=== PATIENT | male | born 1940 | race American Indian/Alaskan Native ===

== ENCOUNTER 2017-03-15 10:11 | Day surgery (SDC) | payer MEDICARE ==
--- NOTE | 2017-03-09 11:51 | Admit Criteria Form ---
Admission Criteria Documentation: AMBULATORY SURGERY EXCEPTION CRITERIA Ambulatory Surgery Exception Criteria ( Place 'X' for any and all applicable criteria): Surgery or procedure performed on ambulatory basis may require inpatient stay for[A] ANY ONE of the following(1)(2)(3)(4)(5)(6)(7)(8)(9): [X] I. A preoperative situation, condition, or finding that warrants inpatient stay as indicated by ANY ONE of the following: [X] a) Inpatient care needed because of severity of a disease or condition rather than the surgery (eg, severe cardiac or respiratory disease, severe infection) (15) (16 ) (17) (18) [] b) Emergent procedure (eg, angioplasty for acute ischemia)(19) [] c) Complex surgical approach or situation as indicated by ANY ONE of the following(3): [] i) Open approach needed instead of usual endoscopic, transcatheter, or other less invasive procedure [] ii) Difficult approach because of previous operation [] iii) Airway monitoring required after open neck procedures(20)(21) [] iv) Large mass requiring unusually extensive dissection [] v) Additional complicating feature requiring inpatient care (eg, drain management)(22(23): [] d) Major surgery in a pt with high anesthetic risk as indicated by ANY ONE of the following (2)(3)(5)(7)(8): [] i) ASA risk class III or higher (severe systemic disease impairing function) [D] [] ii) Advanced age (eg, older than 85 years)(14)(24) [] iii) Symptomatic heart failure(25) [] iv) Symptomatic asthma or COPD(8)(21) [] v) Morbid obesity with hemodynamic or respiratory problems(20)( 21)(26)(27) [] vi) Obstructive sleep apnea(20)(21) [] vii) Former premature infants who are younger than 60 weeks [] viii) High risk for severe postoperative abnormalities (eg, severe postoperative hypocalcemia after parathyroidectomy for severe hyperparathyroidism)(27)( 28) [] ix) Unstable angina(25) [] e) Drug-related risk requiring inpatient stay as indicated by ANY ONE of the following(5)(10)(14)(32)(33) [] i) Procedure requires discontinuing drugs or other therapy (eg , antiarrhythmic medication, antiseizure medication), which necessitates inpatient observation or treatment.(18)(31) [] ii) Major surgery and high risk drug use as indicated by ANY ONE of the following: [] 1) Active abuse of cocaine or similar drug [] 2) Monoamine oxidase inhibitor use [] 3) Other drug identified as posing risk [] f) Inadequate outpatient care situation as indicated by ANY ONE of the following(5)(10)(14)(32)(33) [] i) Patient lives remote from medical facility and procedure has urgent complication potential, and temporary nearby residence cannot be arranged [] ii) Patient will have postprocedure incapacitation and inadequate assistance at home, or alternative level of care cannot be arranged. [] iii) Patient will have long general anesthesia or procedure side effect resolution time, and competent person to stay with patient on first postoperative night at home or alternative level of care cannot be arranged. []iv) Other inadequate outpatient situation that cannot be handled by other means [] II. A perioperative event, condition, or finding that warrants inpatient stay as indicated by ANY ONE of the following (1)(2)(3): [] a) Inadequate physiologic recovery: cardiovascular, respiratory, or hemodynamic status not normal or near preoperative baseline(18) [] b) Hemodynamic instability [] c) Patient not alert with near normal or baseline mental status [] d) Temperature not normal or as expected and not appropriate for outpatient treatment of condition [] e) Ambulatory or appropriate activity level status not yet achieved post procedure [E](34)(35)(36) [] f) Operative site not appropriate (eg, unexpected or excessive drainage or bleeding) [] g) Postoperative effects not resolved or adequately managed (eg, significant pain or vomiting not appropriate for outpatient or next level of care)(10)(12) [] h) Complicating features requiring inpatient care as indicated by ANY ONE of the following(37): [] i) Severe complications of procedure (eg, bowel injury, airway compromise, vascular injury,severe hemorrhage) [] ii) Extensive (eg, dissection far beyond usual scope of procedure ) or prolonged (eg, 120 minutes beyond usual) surgery needed requiring inpatient postoperative care [] iii) Conversion to an open or complex procedure that requires inpatient care (eg, open vs laparoscopic cholecystectomy, abdominal vs vaginal hysterectomy)(38) [] iv) Comorbid condition or test result identified during or post procedure that requires inpatient care (7) [] v) Malignant hyperthermia(30) [] vi) Other complicating feature requiring inpatient care(22)(23) Inpatient stay may be needed until ALL of the following are present (1)(2)(3)(4) (5)(6)(10)(14)(33)(40): []a) Physiologic recovery: cardiovascular, respiratory, and hemodynamic status normal or near preoperative baseline []b) Hemodynamic stability []c) Patient alert, with near normal or baseline mental status []d) Temperature appropriate: patient afebrile or temperature appropriate for outpt treatment of condition []e) Activity level appropriate: ambulatory or appropriate activity level post procedure []f) Operative site appropriate as indicated by ALL of the following: []i) Site dry or with expected drainage []ii) Any blood noted is as expected for procedure. []g) Postoperative effects resolved or managed as indicated by ALL of the following: []i) Pain management appropriate for outpatient (or next level of) care(10) []ii) Minimal nausea and vomiting: if present, successfully treated with oral medication(12) []iii) Headache, dizziness, or drowsiness (if present) are mild. []h) Voiding status acceptable as indicated by ANY ONE of the following: []i) Voiding spontaneously []ii) No voiding but instructions given for follow-up in 6 to 8 hours []iii) Urinary catheter in place, and instructions given for follow-up []i) Complicating features requiring inpatient care manageable at a lower level of care(37) []j) Comorbid conditions manageable at a lower level of care(37) The original [employer] content created by [employer] has been revised. The portions of the content which have been revised are identified through the use of italic text or in bold, and [employer] has neither reviewed nor approved the modified material. All other unmodified content is copyright [employer]. Please see references footnoted in the original [employer] edition 2016
[2017-03-15] MEDS ORDERED: DILAUDID IV PRN (11:18)
--- NOTE | 2017-03-15 11:19 | Anesthesia Day of Surgery ---
Anesthesia Day of Surgery - Day of Surgery Patient Examined: Yes Patient H&P Reviewed: Yes Patient is NPO: Yes
--- NOTE | 2017-03-15 11:20 | Anesthesia Consultation ---
Anesthesia Consult and Med Hx Date of service: 03/15/17 - Airway Anesthetic Teeth Evaluation: Poor ROM Head & Neck: Adequate Mental/Hyoid Distance: Inadequate Mallampati Class: Class III Intubation Access Assessment: Possibly Difficult - Pulmonary Exam CTA: Yes - Cardiac Exam Cardiac Exam: RRR - Pulmonary Hx Smoking: No Hx Sleep Apnea: Yes - Cardiovascular System Hx Hypertension: Yes (X 40 YRS) Hx Heart Murmur: Yes (CAUSES NO PROBLEMS) - Gastrointestinal Hx Gastroesophageal Reflux Disease: Yes (after meals) - Endocrine Hx Hypothyroidism: Yes (ON MEDS) - Other Systems Hx Obesity: Yes (morbid) - Additional Comments Anesthesia Medical History Comments: s/p prostate ca and xrt
[2017-03-15] MEDS ORDERED: ZOFRAN IV PRN (11:30)
[2017-03-15] MEDS ORDERED: NACL 0.9% 1000 ML 1,000 ML IV SCH (12:00)
[2017-03-15] MEDS ORDERED: PEPCID IV NR (12:00)
[2017-03-15] MEDS ORDERED: XYLOCAINE MPF 2% ONE ×2 (13:10→14:07)
[2017-03-15] MEDS ORDERED: DIPRIVAN 10 MG/ML IV ONE (13:11)
[2017-03-15] MEDS ORDERED: ANCEF/STERILE WATER 2 GM/20 ML IV NR (13:11)
[2017-03-15] MEDS ORDERED: SUBLIMAZE ONE (13:11)
[2017-03-15] MEDS ORDERED: DECADRON ONE (14:00)
[2017-03-15] MEDS ORDERED: ZOFRAN ONE (14:00)
[2017-03-15] MEDS ORDERED: WATER FOR IRRIG STERILE IR ONE (14:03)
[2017-03-15] MEDS ORDERED: OMNIPAQUE (300 MG) IR ONE (14:03)
--- NOTE | 2017-03-15 14:06 | Short Stay Summary ---
Short Stay Documentation Date of service: 03/15/17 - History H&P: obtained from office - Allergies and Medications Current Medications: Allergies No Known Allergies Allergy (Verified 03/07/17 12:37) Home Medications Medication Instructions Recorded Confirmed Last Taken Type Aspirin [Adult Low Dose Aspirin EC] 81 mg PO DAILY 03/07/17 03/15/17 03/08/17 History Fenofibrate [Tricor] 145 mg PO QDAY 03/07/17 03/15/17 03/14/17 History Furosemide [Lasix] 20 mg PO QDAY 03/07/17 03/15/17 03/14/17 History Levothyroxine [Synthroid] 25 mcg PO QAM 03/07/17 03/15/17 03/15/17 History Potassium Citrate [Potassium 10 meq PO DAILY 03/07/17 03/15/17 03/14/17 History Citrate ER] Tamsulosin [Flomax] 0.4 mg PO QDAY 03/07/17 03/15/17 03/14/17 History amLODIPine [Norvasc] 10 mg PO DAILY 03/07/17 03/15/17 03/15/17 History Active Medications Cefazolin Sodium (Ancef/Sterile Water 2 Gm/20 Ml) 2 gm IV PREOP NR Stop: 03/15/17 23:59 Famotidine (Pepcid) 20 mg IV PREOP NR Stop: 03/15/17 15:00 Last Admin: 03/15/17 11:57 Dose: 20 mg Hydromorphone HCl (Dilaudid) 0.25 mg IV Q10MIN PRN PRN Reason: Pain, Moderate (4-6) Stop: 03/15/17 15:00 Sodium Chloride (Nacl 0.9% 1000 Ml) 1,000 mls @ 75 mls/hr IV DIRECT LANE Last Admin: 03/15/17 11:57 Dose: 75 mls/hr - Brief post op/procedure progress note Date of procedure: 03/15/17 Post-op diagnosis: same Procedure: cysto rpg, dilation; bx /fulg;res bladder tumor; intravesical dhaval Anesthesia: GETA Findings: stx papillary tubor in tic adjacent to uol efflux after Surgeon: MIKY GILMAN Estimated blood loss: minimal Condition: stable - Hospital course Hospital course: orpacuhome - Disposition Condition at discharge: Good Disposition: DISCHARGED TO HOME OR SELFCARE Short Stay Discharge Plan Activity: advance as tolerated Diet: advance as tolerated Follow up with: MIKY GILMAN MD [Staff Physician] - 7 Days
[2017-03-15] MEDS ORDERED: QUELICIN ONE (14:07)
[2017-03-15] MEDS ORDERED: ZEMURON IV ONE (14:07)
[2017-03-15] MEDS ORDERED: ePHEDrine SULFATE ONE (14:14)
[2017-03-15] MEDS ORDERED: NEOSTIGMINE ONE (14:44)
[2017-03-15] MEDS ORDERED: ROBINUL ONE (14:44)
[2017-03-15] MEDS ORDERED: [UNRECOGNIZED DRUG - OTHER] UD NR (15:00)
[2017-03-15] MEDS ORDERED: WATER FOR INJ UD NR ×3 (15:00→16:00)
[2017-03-15] MEDS ORDERED: [UNRECOGNIZED DRUG - OTHER] UD NR (15:00)
--- NOTE | 2017-03-15 15:10 | Fluoroscopy Report ---
RETROGRADE PYELOGRAM: History: Urethral stricture, prostate cancer. There is adequate filling of the ureters and intrarenal collecting systems with no filling defects or anatomic abnormalities identified.
[2017-03-15] MEDS ORDERED: [UNRECOGNIZED DRUG - OTHER] UD NR (16:00)
[2017-03-15] MEDS: DILAUDID IV PRN ×2 (19:15→19:30)
[2017-03-15] MEDS ORDERED: DILAUDID ONE (19:17)
[2017-03-15 22:34] VITALS: BP 137/52
--- NOTE | 2017-03-19 21:43 | Operative Report ---
PREOPERATIVE DIAGNOSES: Urethral stricture disease, history of prostate cancer. POSTOPERATIVE DIAGNOSES: Urethral stricture disease, history of prostate cancer plus bladder tumor, bladder diverticulum. SURGEON: Boby Muñoz MD ANESTHESIA: General. SPECIMENS: Bladder tumor. ESTIMATED BLOOD LOSS: Minimal. FINDINGS: The bladder tumor just lateral to the right ureteral orifice with the diverticulum at the edge of the diverticulum. The diverticulum that was just lateral to the ureteral orifice with possible intramural ureter passing closed by moderate stricture. CLINICAL INDICATIONS: The patient was counseled on RCBA, antibiotics, SCDs with his history has a urethral stricture and was here for evaluation at this point, antibiotics, SCDs. DESCRIPTION OF PROCEDURE: The patient was transferred to the OR suite in supine position, anesthesia, dorsal lithotomy, prepped and draped in standard fashion. A 22-Lao scope passed, urethral stricture identified. Wire passed beyond this under fluoroscopic visualization in the bladder. DVIU knife passed, incised at the 12 o'clock position and this was fairly extensive, opened up some scare tissue additionally, used the S-curve dilators to further open this up through the urethra in the bladder neck. Once this was open, a 22-Lao scope passed. Pancystoscopy 30 and 70 lens demonstrated no tumors initially, the right and left ureteral orifices were visualized. The diverticulum that was just lateral to the ureteral orifices, but almost decomposing the ureteral orifices and intramural ureter. At this point, we did notice a papillary lesion just lateral to the right ureteral orifice within the diverticulum at edge. At this point, the left ureteral orifice was cannulated with 8-Lao cone tip catheter, contrast injected. Normal left distal ureter, proximal ureter, renal pelvis calyces. No filling defects or hydronephrosis. Repeated on the right side with similar normal findings. At this point, due to the location, we were unable to do any passing type of resectoscope. It was a small papillary lesion, but highly suspicious that looked like a cancer. At this point as best as possible the tumor went at about 90 or 120 degrees at the curve of the diverticulum and this curve just over the ureteral orifice. We rotated and took the biopsy forceps and took some biopsy specimen as best as possible cauterized this area, correlated with where the contrast injected to avoid damaging the ureter and we seemed to be away from this. Biopsies were taken and the surrounding area was cauterized. The bladder was irrigated several times. Biopsy specimen stent. At this point, Dsouza catheter was placed, 20-Lao, we elected to go ahead and instill the mitomycin with plan was to possible instillation of mitomycin due to I would take a while after the procedure. The patient was awakened and transferred to PACU in good and stable condition. Exam under anesthesia, testicles rectal, no masses. JOB# [id number] ATS/NTS
== END 2017-03-15 21:30 | disposition home or self-care (01) ==
LOC: OR 10:11
PROVIDERS: ATTEND Urology
DX: N35.9 Urethral stricture, unspecified (principal); C67.6 Malignant neoplasm of ureteric orifice; N32.3 Diverticulum of bladder; N32.89 Other specified disorders of bladder; I10 Essential (primary) hypertension; F41.9 Anxiety disorder, unspecified; G47.33 Obstructive sleep apnea (adult) (pediatric); K21.9 Gastro-esophageal reflux disease without esophagitis; E03.9 Hypothyroidism, unspecified; E66.01 Morbid (severe) obesity due to excess calories; Z68.41 Body mass index [BMI] 40.0-44.9, adult; Z85.46 Personal history of malignant neoplasm of prostate; Z79.899 Other long term (current) drug therapy
CPT/HCPCS: 36415; 52204; 52276; 74420; 84132; 88305; A4217; C1726; C1758; J0330; J0690; J1100; J1170; J2405; J2704; J2710; J3010; J7030; Q9967; J9280

== ENCOUNTER 2017-06-24 15:17 | Emergency (ER) | payer MEDICARE ==
[2017-06-24 15:45] VITALS: BP 180/70
[2017-06-24] MEDS ORDERED: NACL 0.9% 500 ML IR ONE ×2 (17:50→19:28)
--- NOTE | 2017-06-24 17:59 | Emergency Department Report ---
<NORM BORJASLESHELDON Garces - Last Filed: 06/24/17 18:55> ED General Adult HPI - General Chief complaint: Tube Replacement Stated complaint: URINARY CATH STOPPED UP Time Seen by Provider: 06/24/17 17:45 Source: patient, family Mode of arrival: Ambulatory Limitations: No Limitations - History of Present Illness Initial comments: pt is sp bladder ca w rad he has a mckeon which has been in about a week prior to that he had one for 17 days also has urinary stricture no asa in 1 w the cath continue to occlude with clots flushing is only temp flushes at home then it fills with clot again. concerned w all of the blood loss pt has had vss MD Complaint: hematuria concern for h/h given pts sob. he is morbidly obese Improves with: none Worsens with: none Associated Symptoms: denies other symptoms. denies: confusion, chest pain, cough, diaphoresis, fever/chills, headaches, loss of appetite, malaise, nausea/ vomiting, rash, seizure, shortness of breath, syncope, weakness Treatments Prior to Arrival: other (flushing) - Related Data Home Medications Medication Instructions Recorded Confirmed Last Taken Aspirin [Adult Low Dose Aspirin EC] 81 mg PO DAILY 03/07/17 03/15/17 03/08/17 Fenofibrate [Tricor] 145 mg PO QDAY 03/07/17 03/15/17 03/14/17 Furosemide [Lasix] 20 mg PO QDAY 03/07/17 03/15/17 03/14/17 Levothyroxine [Synthroid] 25 mcg PO QAM 03/07/17 03/15/17 03/15/17 Potassium Citrate [Potassium 10 meq PO DAILY 03/07/17 03/15/17 03/14/17 Citrate ER] Tamsulosin [Flomax] 0.4 mg PO QDAY 03/07/17 03/15/17 03/14/17 amLODIPine [Norvasc] 10 mg PO DAILY 03/07/17 03/15/17 03/15/17 Allergies Allergy/AdvReac Type Severity Reaction Status Date / Time No Known Allergies Allergy Verified 03/07/17 12:37 ED Review of Systems ROS: Stated complaint: URINARY CATH STOPPED UP Other details as noted in HPI Comment: All other systems reviewed and negative Constitutional: no symptoms reported, see HPI. denies: fever Eyes: as per HPI ENT: as per HPI. denies: ear pain, throat pain Respiratory: no symptoms reported, see HPI. denies: cough, orthopnea Cardiovascular: as per HPI. denies: chest pain, palpitations, dyspnea on exertion Endocrine: no symptoms reported, see HPI Gastrointestinal: as per HPI, abdominal pain, other (hematuria). denies: nausea , vomiting, diarrhea, constipation, hematemesis, melena, hematochezia Genitourinary: as per HPI, other (cath). denies: urgency, dysuria Musculoskeletal: as per HPI. denies: back pain Skin: as per HPI. denies: rash, lesions Neurological: as per HPI. denies: headache, weakness Psychiatric: as per HPI. denies: anxiety, depression Hematological/Lymphatic: as per HPI. denies: easy bleeding ED Past Medical Hx - Past Medical History Hx Hypertension: Yes (X 40 YRS) Hx GERD: Yes Additional medical history: Bladder cancer and urethral stricture. sp rad - Surgical History Hx Appendectomy: Yes - Social History Smoking Status: Never Smoker Substance Use Type: None - Medications Home Medications: Home Medications Medication Instructions Recorded Confirmed Last Taken Type Aspirin [Adult Low Dose Aspirin EC] 81 mg PO DAILY 03/07/17 03/15/17 03/08/17 History Fenofibrate [Tricor] 145 mg PO QDAY 03/07/17 03/15/17 03/14/17 History Furosemide [Lasix] 20 mg PO QDAY 03/07/17 03/15/17 03/14/17 History Levothyroxine [Synthroid] 25 mcg PO QAM 03/07/17 03/15/17 03/15/17 History Potassium Citrate [Potassium 10 meq PO DAILY 03/07/17 03/15/17 03/14/17 History Citrate ER] Tamsulosin [Flomax] 0.4 mg PO QDAY 03/07/17 03/15/17 03/14/17 History amLODIPine [Norvasc] 10 mg PO DAILY 03/07/17 03/15/17 03/15/17 History ED Physical Exam - General Limitations: No Limitations General appearance: alert - Head Head exam: Present: atraumatic - Eye Eye exam: Present: normal appearance - ENT ENT exam: Present: mucous membranes moist - Neck Neck exam: Present: normal inspection - Respiratory Respiratory exam: Present: normal lung sounds bilaterally - Cardiovascular Cardiovascular Exam: Present: regular rate - GI/Abdominal GI/Abdominal exam: Present: soft, normal bowel sounds, other (mckeon occluded). Absent: distended, tenderness, guarding, rebound, rigid, diminished bowel sounds , hyperactive bowel sounds, hypoactive bowel sounds, organomegaly, mass, bruit, pulsatile mass, hernia - Rectal Rectal exam: Present: deferred - exam: Present: normal inspection, other (mckeon to leg bag) External exam: Present: bleeding - Extremities Exam Extremities exam: Present: normal inspection - Back Exam Back exam: Present: normal inspection. Absent: CVA tenderness (R), CVA tenderness (L) - Neurological Exam Neurological exam: Present: alert, oriented X3, CN II-XII intact, normal gait - Psychiatric Psychiatric exam: Present: normal affect, normal mood - Skin Skin exam: Present: warm, dry, intact ED Course Vital Signs 06/24/17 15:32 Temperature 97.5 F L Pulse Rate 78 Respiratory 16 Rate Blood Pressure 180/70 O2 Sat by Pulse 100 Oximetry - Reevaluation(s) Reevaluation #1: 06/24/17 18:55 to er today w clogged mckeon bag is flushing but it keeps clotting sp bladder ca and rad sees uro Monday flushed new bag labs noted culture sent dc home w dc poc ED Medical Decision Making - Lab Data Result diagrams: 06/24/17 18:12 - Medical Decision Making h/h wnl cath flushed bag changed dc to uro - Differential Diagnosis hematuria w or wo anemia; occluded mckeon cath Critical care attestation.: If time is entered above; I have spent that time in minutes in the direct care of this critically ill patient, excluding procedure time. ED Disposition Disposition: DC-01 TO HOME OR SELFCARE Is pt being admited?: No Does the pt Need Aspirin: No Condition: Stable Instructions: Acute Hematuria (ED) Additional Instructions: drink water flush the catheter as needed briskly with sterile water uro on Monday let them know we did lab work and have a culture of your urine continue your home meds as instructed by uro. Referrals: PRIMARY CARE, [Primary Care Provider] - 3-5 Days Time of Disposition: 18:47 <TAMI TSAI - Last Filed: 06/24/17 19:31> ED Medical Decision Making - Lab Data Result diagrams: 06/24/17 18:12 06/24/17 18:12 Laboratory Results - last 24 hr 06/24/17 06/24/17 06/24/17 18:00 18:12 18:12 WBC 8.9 RBC 4.94 Hgb 15.0 Hct 45.1 MCV 91 MCH 30 MCHC 33 RDW 13.2 Plt Count 278 Lymph % (Auto) 17.6 Ferry % (Auto) 8.6 H Eos % (Auto) 3.3 Baso % (Auto) 0.3 Lymph # 1.6 Ferry # 0.8 Eos # 0.3 Baso # 0.0 Seg Neutrophils % 70.2 H Seg Neutrophils # 6.3 Sodium 142 Potassium 4.2 Chloride 101.6 Carbon Dioxide 24 Anion Gap 21 BUN 14 Creatinine 1.3 Estimated GFR > 60 BUN/Creatinine Ratio 10.76 Glucose 108 H Calcium 10.0 Total Bilirubin 0.30 AST 14 ALT 17 Alkaline Phosphatase 43 Total Protein 7.0 Albumin 4.4 Albumin/Globulin Ratio 1.7 Urine Color Red Urine Turbidity Turbid Urine pH 6.0 Ur Specific [place] 1.008 Urine Protein 100 mg/dl Urine Glucose (UA) Neg Urine Ketones Neg Urine Blood Mod Urine Nitrite Neg Urine Bilirubin Neg Urine Urobilinogen < 2.0 Ur Leukocyte Esterase Sm Urine WBC (Auto) 165.0 H Urine RBC (Auto) > 182.0 Urine Mucus Few - Medical Decision Making I have seen and examined this patient myself. I agree with the PA or MANAGER CASE plan as discussed. Ga Tsai
[2017-06-24 18:25] LABS: Basophils % (Auto) 0.3 % (0.0-1.8); Eosinophils % (Auto) 3.3 % (0.0-4.3); Hematocrit 45.1 % (35.5-45.6); Mean Corpuscular HGB Conc 33 % (32-34); Mean Corpuscular Hemoglobin 30 pg (28-32); Mean Corpuscular Volume 91 fl (84-94); Platelet Count 278 K/mm3 (140-440); Red Blood Count 4.94 M/mm3 (3.65-5.03); Red Cell Distribution Width 13.2 % (13.2-15.2); White Blood Count 8.9 K/mm3 (4.5-11.0)
[2017-06-24 18:35] LABS: Bilirubin,Urine NEG (Negative); Blood,Urine MOD (Negative); Ketones,Urine NEG (Negative); Leukocyte Esterase,Urine SM (Negative); Mucus,Urine FEW /HPF; Nitrite,Urine NEG (Negative); Urobilinogen,Urine < 2.0 mg/dL (<2.0)
[2017-06-24 18:38] LABS: RBC,Urine > 182.0 /HPF (0.0-6.0)
[2017-06-24 19:03] LABS: BUN/Creatinine Ratio 10.76; Blood Urea Nitrogen 14 mg/dL (9-20); Carbon Dioxide 24 mmol/L (22-30); Glucose 108 mg/dL (75-100)
[2017-06-24 19:04] LABS: Alanine Aminotransferase 17 units/L (7-56); Albumin 4.4 g/dL (3.9-5); Albumin/Globulin Ratio 1.7 %; Alkaline Phosphatase 43 units/L (35-129); Anion Gap 21 mmol/L; Chloride 101.6 mmol/L (98-107); Potassium 4.2 mmol/L (3.6-5.0); Sodium 142 mmol/L (137-145)
== END 2017-06-24 19:50 | disposition home or self-care (01) ==
LOC: ED 15:17
DX: T83.098A Other mechanical complication of other urinary catheter, initial encounter (principal); I10 Essential (primary) hypertension; K21.9 Gastro-esophageal reflux disease without esophagitis; Z79.82 Long term (current) use of aspirin
CPT/HCPCS: 36415; 80053; 81001; 85025; 87076; 87086; 87186; 99283

== ENCOUNTER 2017-09-12 11:03 | Inpatient (IN) | payer MEDICARE ==
[2017-09-12] MEDS ORDERED: PROVENTIL IH NR (12:15)
[2017-09-12] MEDS ORDERED: PEPCID IV SCH (13:00)
[2017-09-12] MEDS ORDERED: LACTATED RINGERS 1,000 ML IV SCH ×2 (13:00→20:00)
--- NOTE | 2017-09-12 13:00 | Anesthesia Consultation ---
Anesthesia Consult and Med Hx Date of service: 09/12/17 - Airway Anesthetic Teeth Evaluation: Poor ROM Head & Neck: Adequate Mental/Hyoid Distance: Adequate Mallampati Class: Class IV Intubation Access Assessment: Possibly Difficult - Cardiac Exam Cardiac Exam: RRR - Pre-Operative Health Status ASA Pre-Surgery Classification: ASA3 Proposed Anesthetic Plan: General - Pulmonary Hx Smoking: No Hx Sleep Apnea: No (HAILEY PRE SCREEN HIGH RISK) - Cardiovascular System Hx Hypertension: Yes (X 40 YRS) Hx Heart Murmur: Yes (CAUSES NO PROBLEMS) - Gastrointestinal Hx Gastroesophageal Reflux Disease: Yes (after meals) - Endocrine Hx Hypothyroidism: Yes (ON MEDS) - Other Systems Hx Obesity: Yes (morbid) - Additional Comments Anesthesia Medical History Comments: Patient given breathing treatment, due to wheezing in preop. Wheezing has substantially subsided, but is still present after treatment. Poor dentition, but teeth are in tact. NAC previously.
--- NOTE | 2017-09-12 13:03 | Anesthesia Day of Surgery ---
Anesthesia Day of Surgery - Day of Surgery Patient Examined: Yes Patient H&P Reviewed: Yes Patient is NPO: Yes
[2017-09-12] MEDS ORDERED: DIPRIVAN 10 MG/ML IV ONE (13:33)
[2017-09-12] MEDS ORDERED: SUBLIMAZE ONE (13:34)
[2017-09-12] MEDS ORDERED: XYLOCAINE MPF 2% ONE (13:34)
[2017-09-12] MEDS ORDERED: ANCEF/STERILE WATER 2 GM/20 ML IV NR (14:00)
[2017-09-12] MEDS ORDERED: ZOFRAN ONE (14:30)
[2017-09-12] MEDS ORDERED: PERCOCET 5/325 PO PRN (14:52)
[2017-09-12] MEDS ORDERED: ZOFRAN IV PRN (14:52)
[2017-09-12] MEDS ORDERED: DILAUDID IV PRN (14:52)
--- NOTE | 2017-09-12 15:07 | Short Stay Summary ---
Short Stay Documentation Date of service: 09/12/17 - History H&P: obtained from office - Allergies and Medications Current Medications: Allergies No Known Allergies Allergy (Verified 03/07/17 12:37) Home Medications Medication Instructions Recorded Confirmed Last Taken Type Aspirin [Adult Low Dose Aspirin EC] 81 mg PO DAILY 03/07/17 09/12/17 1 Week Ago History ~09/05/17 Fenofibrate [Tricor] 145 mg PO QDAY 03/07/17 09/05/17 09/11/17 History Furosemide [Lasix] 20 mg PO QDAY 03/07/17 09/05/17 09/11/17 History Levothyroxine [Synthroid] 25 mcg PO QAM 03/07/17 09/05/17 09/12/17 08:30 History Potassium Citrate [Potassium 10 meq PO DAILY 03/07/17 09/05/17 09/11/17 History Citrate ER] Tamsulosin [Flomax] 0.4 mg PO QDAY 03/07/17 09/05/17 09/11/17 History amLODIPine [Norvasc] 10 mg PO DAILY 03/07/17 09/05/17 09/12/17 08:30 History Active Medications Albuterol (Proventil) 2.5 mg IH PREOP NR Stop: 09/12/17 18:00 Last Admin: 09/12/17 12:15 Dose: 2.5 mg Cefazolin Sodium (Ancef/Sterile Water 2 Gm/20 Ml) 2 gm IV PREOP NR Stop: 09/12/17 23:00 Famotidine (Pepcid) [address] Stop: 09/12/17 23:59 Last Admin: 09/12/17 13:20 Dose: 20 mg Hydromorphone HCl (Dilaudid) 0.5 mg IV Q10MIN PRN PRN Reason: Pain , Severe (7-10) Lactated Ringer's (Lactated Ringers) 1,000 mls @ 75 mls/hr IV DIRECT LANE Last Admin: 09/12/17 13:20 Dose: 75 mls/hr Ondansetron HCl (Zofran) 4 mg IV ONCE PRN PRN Reason: Nausea And Vomiting Oxycodone/Acetaminophen (Percocet 5/325) 1 tab PO ONCE PRN PRN Reason: Pain, Moderate (4-6) - Brief post op/procedure progress note Date of procedure: 09/12/17 Pre-op diagnosis: prostate cancer, blad ca, usd, Post-op diagnosis: other (same plus bladder stones) Procedure: cysto, dilation, bladder bx/fulg lesion; removla bladder stones Anesthesia: GETA Findings: trigone lesion; ertyhem lat rt tic; rt tic stones Surgeon: MIKY GILMAN Estimated blood loss: minimal Pathology: list (bx trig, lat uo, lat tic 1 and 2) Specimen disposition: to lab Condition: stable - Hospital course Hospital course: orpacuhome - Disposition Condition at discharge: Good Disposition: DC-01 TO HOME OR SELFCARE Short Stay Discharge Plan Activity: advance as tolerated Diet: advance as tolerated Follow up with: MIKY GILMAN MD [Staff Physician] - 7 Days
--- NOTE | 2017-09-12 15:32 | Post Anesthesia Evaluation ---
- Post Anesthesia Evaluation Patient Participated: Yes Airway Patent: Yes Stable Respiratory Function: Yes Temp > 96.8F: Yes Pain Manageable: Yes Adequeate Hydration: Yes Anesthesia Complications: No
--- NOTE | 2017-09-12 15:46 | Fluoroscopy Report ---
Retrograde urogram History: Prostate carcinoma. Findings: The pelvicalyceal systems and ureters appear normal. At cystoscopy, a bladder stone was identified and extracted. There is opacification of a sac like structure in the right lower pelvis which may represent a bladder diverticulum. Correlation with the cystoscopy is recommended. There are no other significant findings.
[2017-09-12] MEDS: PROVENTIL IH SCH ×2 (16:15→21:08)
[2017-09-12] MEDS ORDERED: LEVAQUIN PO SCH (22:00)
--- NOTE | 2017-09-12 23:08 | Event Note ---
Date: 09/12/17 See dictated H/p in reports
[2017-09-13] MEDS: NORCO 5/325 PO PRN ×2 (02:59→11:38)
[2017-09-13] MEDS: PROVENTIL IH SCH ×2 (08:27→14:50)
[2017-09-13] MEDS ORDERED: LEVAQUIN PO SCH (10:00)
--- NOTE | 2017-09-13 13:15 | Progress Note ---
Assessment and Plan BLADDER CA PROST CA USD Hypoxia, Sleep Apnea, ?Bronchitis - cont abx - home with mckeon - discharge home when OK with hospitalist service - Subjective Date of service: 09/13/17 Interval history: some cath pain Objective - Constitutional Vitals: Vital Signs - 12hr 09/13/17 09/13/17 09/13/17 02:59 05:12 07:50 Temperature 97.5 F L 98 F Pulse Rate 83 80 Pulse Rate [ Anterior Bilateral Throughout] Respiratory 20 20 20 Rate Respiratory Rate [Anterior Bilateral Throughout] Blood Pressure 141/64 Blood Pressure 151/68 [Left] O2 Sat by Pulse 94 95 Oximetry 09/13/17 09/13/17 09/13/17 08:27 08:42 11:38 Temperature Pulse Rate Pulse Rate [ 86 88 Anterior Bilateral Throughout] Respiratory 20 Rate Respiratory 16 16 Rate [Anterior Bilateral Throughout] Blood Pressure Blood Pressure [Left] O2 Sat by Pulse Oximetry General appearance: Present: no acute distress - Additional findings Additional findings: gu cath some dk gen nad ros no sob - Labs CBC & Chem 7: 09/12/17 12:30
[2017-09-13 13:43] VITALS: BP 137/62
[2017-09-13] MEDS ORDERED: LASIX PO SCH ×2 (14:00→14:30)
[2017-09-13] MEDS ORDERED: TRICOR PO SCH ×2 (14:00→14:30)
[2017-09-13] MEDS ORDERED: NORVASC PO SCH (14:30)
--- NOTE | 2017-09-13 15:16 | Progress Note ---
Subjective Date of service: 09/13/17 Objective - Constitutional Vitals: Vital Signs - 12hr 09/13/17 09/13/17 09/13/17 05:12 07:50 08:27 Temperature 97.5 F L 98 F Pulse Rate 83 80 Pulse Rate [ 86 Anterior Bilateral Throughout] Respiratory 20 20 Rate Respiratory 16 Rate [Anterior Bilateral Throughout] Blood Pressure 141/64 Blood Pressure 151/68 [Left] O2 Sat by Pulse 94 95 Oximetry 09/13/17 09/13/17 09/13/17 08:42 11:38 12:00 Temperature 98 F Pulse Rate 77 Pulse Rate [ 88 Anterior Bilateral Throughout] Respiratory 20 20 Rate Respiratory 16 Rate [Anterior Bilateral Throughout] Blood Pressure Blood Pressure 137/62 [Left] O2 Sat by Pulse 93 Oximetry 09/13/17 09/13/17 14:42 14:52 Temperature Pulse Rate 77 Pulse Rate [ 84 Anterior Bilateral Throughout] Respiratory Rate Respiratory 16 Rate [Anterior Bilateral Throughout] Blood Pressure 137/62 Blood Pressure [Left] O2 Sat by Pulse Oximetry - Labs CBC & Chem 7: 09/12/17 12:30
[2017-09-13 15:17] LABS: Basophils % (Auto) 0.1 % (0.0-1.8); Eosinophils % (Auto) 0.9 % (0.0-4.3); Hematocrit 43.4 % (35.5-45.6); Hemoglobin 14.5 gm/dl (11.8-15.2); Mean Corpuscular HGB Conc 33 % (32-34); Mean Corpuscular Hemoglobin 31 pg (28-32); Mean Corpuscular Volume 93 fl (84-94); Platelet Count 233 K/mm3 (140-440); Red Blood Count 4.69 M/mm3 (3.65-5.03); Red Cell Distribution Width 13.8 % (13.2-15.2); White Blood Count 6.9 K/mm3 (4.5-11.0)
[2017-09-13 15:30] LABS: Anion Gap 16 mmol/L; BUN/Creatinine Ratio 14; Blood Urea Nitrogen 17 mg/dL (9-20); Calcium 8.8 mg/dL (8.4-10.2); Carbon Dioxide 30 mmol/L (22-30); Chloride 102.5 mmol/L (98-107); Glucose 102 mg/dL (75-100); Potassium 4.2 mmol/L (3.6-5.0); Sodium 144 mmol/L (137-145)
--- NOTE | 2017-09-13 16:52 | Discharge Summary ---
Providers - Providers Date of Admission: 09/12/17 18:46 Date of discharge: 09/13/17 Attending physician: EVE ARIAS 09/12/17 11:29 Consult to Anesthesiology [CONS] Routine Consulting Provider: CHARBEL ANESTHESIA TINO BARRETO Reason For Exam: SURGERY TODAY 09/12/17 18:59 Consult to Physician [CONS] Routine Consulting Provider: MIKY GILMAN Reason For Exam: S/P CYSTO URETER [facility] Place consult to:: DR. GILMAN Notified:: DR. GILMAN Primary care physician: PROJECT MANAGEMENT CONSULTANT Hospitalization Condition: Good Hospital course: See dictated discharge summary Disposition: DC-01 TO HOME OR SELFCARE Time spent for discharge: 33 min Core Measure Documentation - Palliative Care Palliative Care/ Comfort Measures: Not Applicable - Core Measures Any of the following diagnoses?: none Exam - Constitutional Vitals: Temp Pulse Resp BP Pulse Ox 98 F 84 16 137/62 93 09/13/17 12:00 09/13/17 14:52 09/13/17 14:52 09/13/17 14:42 09/13/17 12:00 General appearance: Present: no acute distress, well-nourished - EENT Eyes: Present: PERRL ENT: hearing intact, clear oral mucosa - Neck Neck: Present: supple, normal ROM - Respiratory Respiratory effort: normal Respiratory: bilateral: CTA - Cardiovascular Heart Sounds: Present: S1 & S2. Absent: rub, click - Extremities Extremities: pulses symmetrical, No edema Peripheral Pulses: within normal limits - Abdominal General gastrointestinal: Present: soft, non-tender, non-distended, normal bowel sounds Male genitourinary: Present: normal - Integumentary Integumentary: Present: clear, warm, dry - Musculoskeletal Musculoskeletal: gait normal, strength equal bilaterally - Psychiatric Psychiatric: appropriate mood/affect, intact judgment & insight - Neurologic Neurologic: CNII-XII intact, moves all extremities Plan Activity: no restrictions Diet: low fat, low cholesterol, low salt Follow up with: MIKY GILMAN MD [Staff Physician] - 7 Days Prescriptions: HYDROcodone/APAP 5-325 [Perry 5-325 mg TAB] 1 each PO Q4HR PRN #20 tablet PRN Reason: Pain
--- NOTE | 2017-09-13 23:47 | History and Physical Report ---
CHIEF COMPLAINT: Cough and wheezing for 2 days. HISTORY OF PRESENT ILLNESS: A 77-year-old male admitted for cystoscopy, and dilatation and bladder biopsy, fulguration of the lesion and removal of bladder stones. Postoperatively, the patient is doing well. The patient continues to cough and has wheezing. Hence the admission from PACU. The patient had erythema on the trigone region. Also has stones in the bladder. Postop, the patient did well, but continues to cough and also patient has obstructive sleep apnea, but never was on CPAP machine. PAST MEDICAL HISTORY: As mentioned, hyperlipidemia, chronic bronchitis. Hypertension. Congestive heart failure. BPH. Hypothyroidism. CURRENT MEDICATIONS: Amlodipine 10 mg daily, aspirin 81 mg daily, fenofibrate 145 mg p.o. daily, furosemide 20 mg once a day, levothyroxine 25 mcg once a day, potassium 10 mEq once a day, tamsulosin 0.4 mg daily. PAST SURGICAL HISTORY: Bladder stone removal. SOCIAL HISTORY: Does not smoke. No alcohol, no recreational drugs. FAMILY HISTORY: Significant for hypertension. REVIEW OF SYSTEMS: Significant for no shortness of breath, no chest pain, no palpitations. No nausea, no vomiting. A 14-point review of systems done, essentially negative. PHYSICAL EXAMINATION: GENERAL: Elderly male, cooperative during examination, slightly wheezing. VITAL SIGNS: Temperature is 98.0, pulse is 88, respirations are 20, blood pressure is 137/62. HEENT: Unremarkable. Pupils equal and reactive. NECK: Supple, no lymphadenopathy, no thyromegaly. LUNGS: Clear to auscultation and percussion. Good air entry. CARDIOVASCULAR: S1, S2 heard. No gallop, no murmur, no rub. Apical impulse in left fifth intercostal space and midclavicular line. ABDOMEN: Soft and benign. No hepatosplenomegaly. No guarding, no rigidity. Hernial orifices are normal. EXTREMITIES: Good pedal pulses. No pedal edema. CENTRAL NERVOUS SYSTEM: Alert and oriented x 4, nonfocal exam. LABORATORY DATA: Normal. There has been normal ranges, both electrolytes and hemoglobin and hematocrit. ASSESSMENT AND PLAN: 1. Chronic obstructive pulmonary disease exacerbation in view of cough, wheezing and cough productive of yellow sputum and history of smoking. The patient started on nebulizer treatments, IV Solu-Medrol, nebulizer treatments and IV antibiotics. Also, Pulmonary consult requested. 2. Hypertension. Continue antihypertensives in the form of losartan and amlodipine. Losartan is 100 mg once a day, amlodipine 10 mg once a day. 3. Benign prostatic hypertrophy. Continue tamsulosin, 0.4 mg daily. 4. Hyperlipidemia. Continue statins and fenofibrate. 5. Deep venous thrombosis prophylaxis, Lovenox 40 mg subcutaneous daily. 6. Antibiotic choice was Rocephin 2 grams IV piggyback q. 24. The patient was also given levofloxacin, but was changed to cefazolin. JOB# [id number] [place]
--- NOTE | 2017-09-14 03:19 | Discharge Summary ---
HOSPITAL COURSE: The patient was admitted for low-grade fever with worsening shortness of breath and cough productive of yellow sputum. The patient was diagnosed with COPD exacerbation versus acute on chronic bronchitis. Now, the patient was admitted for IV Solu-Medrol, IV antibiotics and DuoNeb q. 6 hours around the clock and q. 3 hours p.r.n. The patient did well in the next 24 hours and the patient wanted to go home. If the patient was not to be discharged, the patient wanted to go against medical advice. Hence, the patient was discharged on Levaquin 750 mg daily for 10 days and prednisone 10 mg daily for 5 days. DISCHARGE DIAGNOSES: Acute bronchitis and chronic obstructive pulmonary disease exacerbation, not responding to outpatient treatment, hyperlipidemia, hypertension, congestive heart failure, gastroesophageal reflux disease. [facility]# [id number] [place]
[2017-09-14] MEDS ORDERED: SYNTHROID PO SCH (06:00)
--- NOTE | 2017-09-15 11:01 | Operative Report ---
PREOPERATIVE DIAGNOSES: 1. Prostate cancer. 2. Bladder cancer. 3. Urethral stricture disease. 4. Bladder diverticulum. 5. Hematuria. POSTOPERATIVE DIAGNOSES: 1. Prostate cancer. 2. Bladder cancer. 3. Urethral stricture disease. 4. Bladder diverticulum. 5. Hematuria. 6. Bladder stones. PROCEDURES: Cystoscopy, removal of bladder stones, cystolitholapaxy, less than 2 cm, biopsy and fulguration of lesions ____. ESTIMATED BLOOD LOSS: Minimal. IMPLANTS: None. FINDINGS: Moderate suspicion erythema at the trigone lateral to the diverticulum and then low suspicion area medial to the right ureteral orifice, also right and left ureteral orifices laterally displaced adjacent to the just almost entering the diverticulum making it hard for visualization for anyone that looks in in the future. CLINICAL INDICATIONS: Counseled RCBA, antibiotics, SCDs. DESCRIPTION OF PROCEDURE: The patient was transferred to the OR suite in the supine position, anesthesia, dorsal lithotomy, prepped and draped in the standard fashion. A 22-Colombian scope passed, the stricture was identified. Wire passed, was dilated up to 20-Colombian. Next, a 22-Colombian scope passed within the bladder, mild to moderate large lateral lobe. Upon entering the bladder, pancystoscopy was performed. There were some stones visualized in the right diverticulum. These were manipulated with a grasper. These were fragmented and crushed with ____ crushing device. Fragments were grasped, dropped in the bladder, and ____ were flushed out. At this point, inspection demonstrated at the trigone and demonstrated previous some raised erythematous suspicious areas along the trigone just where the previous low-grade tumor was identified. There was some minimal inflammation, but no high suspicion areas. Then of course, there was the remaining large lateral diverticulum just adjacent to the ____ left ureteral orifice, which made access to the ureteral orifice difficult. Left UO was cannulated with 8-Colombian cone-tipped catheter, contrast injected, normal left distal ureter, proximal ureter, renal pelvis calyces, and no filling defects or hydronephrosis. Repeated on the right side with similar normal findings. At this point, a biopsy was taken at the previous tumor site just inside the diverticulum at an acute angle and sent for pathology. Next, a biopsy taken just to the adjacent lateral diverticulum x 2 different areas. Surrounding areas were cauterized approximately 1.5 cm area total in this area, trigone lesion was biopsied and surrounding area, approximately 12 mm area, cauterized and treated in this area. Possible carcinoma in situ in these areas, low-grade lesions are radiation effects, chronic. At this point, all areas were fulgurated. There was some bleeding just at the opening at the right ureteral orifice just adjacent with needle point, [place]. This area was cauterized carefully with the right ureteral orifice adequately opened and appeared to be effluxing well. At this point, scope was withdrawn. A 20-Colombian Dsouza catheter placed. Balloon inflated to 20 mL. Testicle exam, no masses. Prostate exam, no nodules. The patient awakened and transferred to the PACU in good and stable condition. JOB# [id number] [place]
--- NOTE | 2017-09-20 15:05 | Query- Dyspnea ---
Mery Atkinson____Mayela Date: 09/20/17 National Coverage Specialist/CDS: Araceli / Zak Phone#:___[phone] Exercise your independent professional judgment when responding to query. Questions asked do not imply a particular answer is desired or expected. We greatly appreciate your clarification on this issue. Clinical Documentation States: 77 year old male was admitted on 09/12/17 The discharge summary (Dr. Pedro ) states " Acute bronchitis and chronic obstructive pulmonary disease exacerbation, not responding to outpatient treatment, congestive heart disease " Clinical Findings Show: Respiratory rate: 25 O2 Flow rate: 98 L/min Please clarify if the patient had any of the following conditions based on the above clinical findings: [ ] Respiratory Failure [ ] Acute [ ] Acute on Chronic [ ] Chronic [ ] Respiratory failure due to trauma [ ] Acute Respiratory Distress Syndrome [ ] Other: [x ] Unable to determine [ ] Comment/Explanation: Present on Admission: [ ] Yes (Y) [x ] Clinically undeterminable (W) [ ] No (N) Please also document response in your Progress Notes and/or Discharge Summary and indicate if the condition was present on admission. LISAD
--- NOTE | 2017-09-29 08:55 | Discharge Summary ---
HISTORY OF PRESENT ILLNESS: The patient was admitted for cough and wheezing of 2 days' duration. The patient's admission diagnoses were: 1. Chronic obstructive pulmonary disease exacerbation. The patient was started on IV Solu-Medrol, nebulizer treatment and IV antibiotics. Also, Pulmonary consult was requested. 2. Hypertension. The patient was continued on losartan 100 mg daily and amlodipine 10 mg once a day. 3. Benign prostatic hypertrophy. The patient was continued on tamsulosin 0.4 mg daily. 4. Hyperlipidemia. The patient was continued on statins and fenofibrate. 5. Deep venous thrombosis prophylaxis. The patient was continued on Lovenox 40 mg subcutaneous daily. HOSPITAL COURSE: The patient did well with nebulizer treatments and antibiotics. The patient also had a prostate cancer, bladder cancer. Had operative procedure, which involved cystoscopy, dilatation, bladder biopsy, fulguration of the lesion and removal of bladder stones. Postop, the patient did well. The patient felt a lot better on 09/13/2017 and was discharged on 09/13/2017 on oral antibiotics, Levaquin once a day for 8 days. Also, prednisone low dose and also bronchodilators. DISCHARGE DIAGNOSES: Chronic obstructive pulmonary disease exacerbation, hypertension, benign prostatic hyperplasia, bladder stone removal, cystoscopy, and bladder biopsy. Consultation was by Dr. Muñoz. The patient to follow up with Dr. Muñoz in 1 week. JOB# [id number] [facility]
== END 2017-09-13 17:15 | disposition home or self-care (01) | DRG 654 ==
LOC: OR 11:03 → 3A 18:46 → 3B-SURG 19:30
PROVIDERS: ADMIT Internal Medicine; ATTEND Internal Medicine
PROC: 0TCB8ZZ Extirpation of Matter from Bladder, Via Natural or Artificial Opening Endoscopic (ICD-10-PCS; principal; 2017-09-12)
PROC: 0T7B8ZZ Dilation of Bladder, Via Natural or Artificial Opening Endoscopic (ICD-10-PCS; 2017-09-12)
PROC: 0TBB8ZX Excision of Bladder, Via Natural or Artificial Opening Endoscopic, Diagnostic (ICD-10-PCS; 2017-09-12)
PROC: 0T5B8ZZ Destruction of Bladder, Via Natural or Artificial Opening Endoscopic (ICD-10-PCS; 2017-09-12)
PROC: BT141ZZ Fluoroscopy of Kidneys, Ureters and Bladder using Low Osmolar Contrast (ICD-10-PCS; 2017-09-12)
DX: C67.9 Malignant neoplasm of bladder, unspecified (principal); J44.1 Chronic obstructive pulmonary disease with (acute) exacerbation; J44.0 Chronic obstructive pulmonary disease with (acute) lower respiratory infection; Z68.41 Body mass index [BMI] 40.0-44.9, adult; N21.0 Calculus in bladder; C61 Malignant neoplasm of prostate; J20.9 Acute bronchitis, unspecified; E78.5 Hyperlipidemia, unspecified; I11.0 Hypertensive heart disease with heart failure; I50.9 Heart failure, unspecified; K21.9 Gastro-esophageal reflux disease without esophagitis; R09.02 Hypoxemia; G47.33 Obstructive sleep apnea (adult) (pediatric); N40.0 Benign prostatic hyperplasia without lower urinary tract symptoms; E03.9 Hypothyroidism, unspecified; E66.01 Morbid (severe) obesity due to excess calories; Z98.890 Other specified postprocedural states; Z79.82 Long term (current) use of aspirin; Z79.899 Other long term (current) drug therapy; Z82.49 Family history of ischemic heart disease and other diseases of the circulatory system
CPT/HCPCS: 36415; 74420; 80048; 84132; 85025; 88300; 88302; 88305; 94640; C1726; C1758; J0690; J1170; J2405; J2704; J3010; J7120; Q9967